=== PATIENT | female | born 1950 | race Caucasian/White ===

== ENCOUNTER → 2017-06-03 | Outpatient (CLI) | payer MEDICARE, BC ==
[~2017-06-03] MED LIST: ERGO500014 PO; ISON300T72 PO; PYRI50TA80 PO
--- NOTE | 2017-06-03 19:35 | RADRPT ---
PROCEDURE: CT sinuses without contrast. CLINICAL INDICATION: Sinusitis TECHNIQUE: Routine CT scan of the sinuses was performed on a high resolution multidetector scanner without intravenous contrast. Images and image data are available for surgical planning and localiz ation purposes. One or more of the following dose reduction techniques were used: Automated exposur e control; Adjustment of the mA and/or kV according to patient size; Use of iterative reconstruction technique. CTDI = 23 mGy. DLP = 363 mGy-cm. DICOM images are available. COMPARISON: None. FINDINGS: Frontal sinuses: Normal; outflow tracts clear. Ethmoid air cells: Normal. Sphenoid sinuses: Normal; sphenoethmoidal recess clear. Maxillary sinuses: Clear. Ostiomeatal complexes are patent. Nasal passages: Normal appearance of the nasal septum. Orbits: The osseous and soft tissue contents of the orbits are normal. Extracranial soft tissues: Normal Nasopharynx: Clear; no adenoidal enlargement. Temporomandibular joint: Normal static examination. Mastoid air cells: Visualized portions are clear. Intracranial contents: Not well visualized due to technique. IMPRESSION: Normal examination of the paranasal sinuses without evidence of acute or chronic sinusitis. RPTAT: AADD .Blaise Wells MD, MD Date Time Electronically viewed and signed by .Blaise Wells MD, on 06/03/2017 19:35 .B/
== END | disposition home or self-care (01) ==
LOC: C/S 09:59
PROVIDERS: ATTEND Internal Medicine
DX: J32.9 Chronic sinusitis, unspecified (principal)
CPT/HCPCS: 70486

== ENCOUNTER 2018-01-07 23:58 | Emergency (ER) | END 2018-01-08 06:38 | disposition home or self-care (01) ==